=== PATIENT | female | born 1995 | race Caucasian/White ===

== ENCOUNTER 2023-07-19 16:03 | Emergency (ER) | payer OTHER, SELFPAY ==
[2023-07-19] VITALS (8 sets, daily range): BP systolic 92–132; BP diastolic 43–64; PULSE 75–87; RESP 16–18; TEMP 37; O2SAT 99–100
[2023-07-19 17:37] LABS: Basophils Percent Auto 0.2 % (0.2-1.2); Eosinophils Percent Auto 0.1 % (0-4.4); Hematocrit 39.8 % (37.0-47.0); Hemoglobin 13.7 g/dL (12.0-15.0); Immature Granulocyte Absolute 0.03 K/mm3 (0.00-0.031); Immature Granulocyte Percent A 0.3 % (0-0.5); Lymphocytes Absolute Auto 0.34 K/mm3 (0.9-3.2); Lymphocytes Percent Auto 3.4 % (18.3-44.2); Mean Corpuscular HGB Conc 34.4 g/dl (32-36); Mean Corpuscular Hemoglobin 32.9 pg (26-34); Mean Corpuscular Volume 95.7 fl (80-100); Mean Platelet Volume 9.7 fl (7.4-10.4); Monocytes Absolute Auto 0.2 K/mm3 (0.1-0.6); Monocytes Percent Auto 2.4 % (2.6-8.5); Neutrophils Absolute Auto 9.4 K/mm3 (1.3-6.7); Neutrophils Percent Auto 93.6 % (45.5-73.1); Platelet Count Result 181 k/mm3 (150-375); Red Blood Count 4.16 M/mm3 (4.2-5.4); Red Cell Distribution Width 13.5 % (11.5-14.5)
--- NOTE | 2023-07-19 17:43 | ED.NAVMDI ---
HPI - Nausea/Vomiting/Diarrhea General Chief complaint: Nausea/Vomiting/Diarrhea <Shraddha Bernabe PA-C - Last Filed: 07/21/23 16:53> Stated complaint: 17 weeks preg, N/V <Shraddha Bernabe PA-C - Last Filed: 07/21/23 16:53> Time Seen by Provider: 07/19/23 17:09 <Shraddha Bernabe PA-C - Last Filed: 07/21/23 16:53> Source: patient <Shraddha Bernabe PA-C - Last Filed: 07/21/23 16:53> Mode of arrival: ambulatory <ANALISA Doty Last Filed: 07/21/23 16:53> Limitations: no limitations <Shraddha Bernabe PA-C - Last Filed: 07/21/23 16:53> History of Present Illness HPI Narrative: This is a 27 year old female that presents to the ER for nausea and vomiting. Ongoing since earlier this morning. Reports some associated crampy abdominal pain. She is currently 17 weeks . Her OB is at [facility]. She is feeling baby moving. Reports her daughter was ill yesterday and was vomiting. Denies fever, dysuria vaginal bleeding, or diarrhea. <Shraddha Bernabe PA-C - Last Filed: 07/21/23 16:53> Related Data Allergies/Adverse reactions: Allergies Allergy/AdvReac Type Severity Reaction Status Date / Time No Known Allergies Allergy Verified 07/19/23 16:08 <Shraddha Bernabe PA-C - Last Filed: 07/21/23 16:53> Review of Systems Review of Systems: CONSTITUTIONAL: Denies fever GASTROINTESTINAL: Reports abdominal pain, nausea, vomiting. Denies diarrhea. GENITOURINARY: Denies dysuria or hematuria. <ANALISA Doty Last Filed: 07/21/23 16:53> All systems reviewed & are unremarkable except as noted in HPI and below <ANALISA Doty Last Filed: 07/21/23 16:53> ON LICENSE OF [facility] Past Medical History Medical History: Medical History (Updated 07/20/23 @ 00:00 by Background Daemon) No active medical problems <Shraddha Bernabe PA-C - Last Filed: 07/21/23 16:53> Social History Social History: Social History (Updated 07/19/23 @ 17:45 by Shraddha Bernabe PA-C) Smoking status: Never smoker <Shraddha Bernabe PA-C - Last Filed: 07/21/23 16:53> Exam Narrative: GENERAL: Well-appearing, well-nourished, and in no acute distress. HEAD: Normocephalic, atraumatic. EYES: EOMI. CHEST: Clear to auscultation. No respiratory distress. No wheezes rales or rhonchi HEART: Regular rate and rhythm. No murmur heard. Normal peripheral pulses. ABDOMEN: Gravid, nontender, normal active bowel sounds. EXTREMITIES: Normal range of motion. No edema. SKIN: Warm, dry, no rash. NEURO: No focal deficits. Alert and oriented x3. PSYCH: Normal mood and affect <Shraddha Bernabe PA-C - Last Filed: 07/21/23 16:53> Course Course Emergency Course: Patient reports improvement after zofran, fluids and pepcid <Shraddha Bernabe PA-C - Last Filed: 07/21/23 16:53> Patient reports improvement after zofran, fluids and pepcid 19:00 (MD Ricky) - This patient was signed out to me by CELESTE Bernabe pending p.o. challenge with anticipated discharge. 19:58 - The patient tolerated p.o. well. Will discharge. <César García MD - Last Filed: 07/19/23 22:58> Vital Signs Vital signs: Vital Signs Temperature 98.6 F 07/19/23 16:05 Pulse Rate 85 07/19/23 16:05 Respiratory Rate 18 07/19/23 16:05 Blood Pressure 132/54 L 07/19/23 16:05 Pulse Oximetry 99 07/19/23 16:05 Oxygen Delivery Room Air 07/19/23 16:05 Temperature 98.6 F 07/19/23 16:05 Pulse Rate 80 07/19/23 19:10 Respiratory Rate 16 07/19/23 19:10 Blood Pressure 98/55 L 07/19/23 19:10 Pulse Oximetry 100 07/19/23 19:10 Oxygen Delivery Room Air 07/19/23 16:05 <Shraddha Bernabe PA-C - Last Filed: 07/21/23 16:53> Vital Signs Temperature 98.6 F 07/19/23 16:05 Pulse Rate 85 07/19/23 16:05 Respiratory Rate 18 07/19/23 16:05 Blood Pressure 132/54 L 07/19/23 16:05 Pulse Oximetry 99 07/19/23 16:05 Oxygen Delivery Room Air 07/19/23 16:05 Temperature 98.6 F
[2023-07-19 17:49] LABS: Alanine Aminotransferase 14 U/L (6-35); Albumin Level 4.2 g/dL (3.5-5.1); Alkaline Phosphatase 42 U/L (38-126); Anion Gap 7 mmol/L (4-12); Aspartate Amino Transferase 22 U/L (14-36); Bilirubin,Total 0.8 mg/dL (0.2-1.3); Blood Urea Nitrogen 13 mg/dL (7-17); Carbon Dioxide 22 mmol/L (22-30); Chloride 106 mmol/L (98-107); Estimated CRCL calculation 127 ml/min; Estimated Glomerular Filt Rate > 60; Glucose 88 mg/dL (65-110); Lipase 387 U/L (23-300); Potassium 3.7 mmol/L (3.4-5.0); Sodium 135 mmol/L (137-145)
[2023-07-19] MEDS: SODIUM CHLORIDE 0.9% IV 1,000 ML 999 ML IV CONT ×2 (17:49→18:25)
[2023-07-19] MEDS: ONDANSETRON INJ 4 MG/2 ML VIAL IV PUSH (17:49)
[2023-07-19] MEDS: FAMOTIDINE 20 MG/2 ML VIAL IV PUSH (17:52)
[2023-07-19 18:17] LABS: Appearance Urine Clear (Clear); Bacteria Urine None Seen /hpf; Bilirubin Urine Negative (Negative); Blood Urine Negative (Negative); Color Urine Yellow (Yellow); Glucose Urine UA Negative (Negative); Ketones Urine 4+ mg/dL (Negative); Leukocyte Esterase Ur Negative LEU/UL (Negative); Nitrate Urine Negative (Negative); Non Pathogenic Casts 0-2; Protein Urine Trace mg/dL (Negative); Specific Grav Ur 1.028 (1.001-1.035); Squamous Epithelial Cell Urine None Seen /hpf (Few); WBC Urine 0-5 /hpf (0-3); pH Urine 5.5 (5.0-9.0)
[2023-07-19 18:18] LABS: Add Urine Microscopic? YES
[2023-07-19] MEDS: METOCLOPRAMIDE HCL INJ 10 MG/2 ML VIAL IV PUSH (18:51)
[2023-07-19] MEDS: diphenhydrAMINE HCl INJ 50 MG/ML VIAL 25 MG IV PUSH (18:51)
== END 2023-07-19 20:10 | disposition home or self-care (01) ==
PROVIDERS: Physician Assistant; Emergency Provider Preventive Medicine Aerospace Medicine
DX: O99.612 Diseases of the digestive system complicating pregnancy, second trimester (principal); K52.9 Noninfective gastroenteritis and colitis, unspecified; Z3A.17 17 weeks gestation of pregnancy
CPT/HCPCS: 36415; 80053; 81001; 83690; 85025; 96361; 96374; 96375; 99284; J1200; J2405; J2765; J7030